=== PATIENT | female | born 1955 | race Caucasian/White ===

== ENCOUNTER 2018-11-18 11:32 | Inpatient (IN) | payer OTHER ==
[~2018-11-18 11:32] MED LIST: CEFAZOLIN 1 GM/50 ML (PMX) 50 ML IVPB; DESFLURANE 15 MIN; GLYCOPYRROLATE 0.4 MG INJ; NEOSTIGMINE 3 MG/3 ML SYRINGE; SOD CHLORIDE 0.9% 1,000 ML IV
[2018-11-18] MEDS ORDERED: MIDAZOLAM 1 MG/ML 2 ML INJ (15:16)
[2018-11-18] MEDS ORDERED: FENTAnyl 50 MCG/ML VIAL (15:27)
[2018-11-18] MEDS ORDERED: ONDANSETRON 4 MG INJ IV ×2 (15:30→17:00)
[2018-11-18] MEDS ORDERED: MEPERIDINE 25 MG INJ IV (15:30)
[2018-11-18] MEDS ORDERED: ALBUTEROL 0.083% (NEB) 2.5 MG/3 ML AMP HHN (15:30)
[2018-11-18] MEDS ORDERED: FENTAnyl 50 MCG/ML VIAL IV ×2 (15:30)
[2018-11-18] MEDS ORDERED: DIPHENHYDRAMINE 50 MG INJ IV (15:30)
[2018-11-18] MEDS ORDERED: HYDROmorphONE 1 MG/5 ML IV SYRINGE IV (15:30)
[2018-11-18] MEDS ORDERED: METOCLOPRAMIDE 10 MG INJ IV (15:30)
[2018-11-18] MEDS ORDERED: CEFAZOLIN 1 GM INJ (15:47)
[2018-11-18] MEDS ORDERED: ROCURONIUM 50 MG INJ (15:47)
[2018-11-18] MEDS ORDERED: PROPOFOL 20 ML (15:47)
[2018-11-18] MEDS ORDERED: SUCCINYLCHOLINE CHLORIDE 100 MG/5 ML SYG IV (15:47)
[2018-11-18] MEDS ORDERED: DEXAMETHASONE 4 MG/ML 1 ML INJ (15:47)
[2018-11-18] MEDS ORDERED: SUGAMMADEX SODIUM 200 MG/2 ML VIAL IV (15:47)
[2018-11-18] MEDS ORDERED: ONDANSETRON 4 MG INJ (15:47)
[2018-11-18] MEDS ORDERED: LIDOCAINE 100 MG SYRINGE (15:47)
[2018-11-18] MEDS: HYDROmorphONE 1 MG/5 ML IV SYRINGE IV ×2 (16:56→17:36)
[2018-11-18] MEDS ORDERED: morphine 2 MG INJ IV (17:00)
[2018-11-18] MEDS: D5W-0.45 NACL + KCL 20 MEQ 1,000 ML IV (18:53)
[2018-11-18] MEDS: ACETAMINOPHEN 1000MG/100ML IV 100 ML IVPB (20:04)
[2018-11-19] MEDS ORDERED: morphine SULFATE/PF (2 MG/2 ML) SYG IV (00:11)
[2018-11-19] MEDS: D5W-0.45 NACL + KCL 20 MEQ 1,000 ML IV ×2 (00:32→02:16)
[2018-11-19] MEDS: ACETAMINOPHEN 1000MG/100ML IV 100 ML IVPB ×2 (02:08→10:49)
[2018-11-19] MEDS: METHIMAZOLE 5 MG TAB PO (07:15)
[2018-11-19] MEDS: AMLODIPINE 10 MG TAB PO (08:53)
[2018-11-19] MEDS ORDERED: METHIMAZOLE 5 MG TAB PO (09:00)
== END 2018-11-19 15:45 | disposition home or self-care (01) | DRG 580 ==
LOC: REC 11:32 → MS1 18:10
PROC: 0HTU0ZZ Resection of Left Breast, Open Approach (ICD-10-PCS; principal; 2018-11-18 15:00)
PROC: 07B60ZX Excision of Left Axillary Lymphatic, Open Approach, Diagnostic (ICD-10-PCS; 2018-11-18 15:00)
DX: C50.912 Malignant neoplasm of unspecified site of left female breast (principal); C77.3 Secondary and unspecified malignant neoplasm of axilla and upper limb lymph nodes; E05.90 Thyrotoxicosis, unspecified without thyrotoxic crisis or storm; I10 Essential (primary) hypertension; Z90.710 Acquired absence of both cervix and uterus; Z80.3 Family history of malignant neoplasm of breast; Z80.49 Family history of malignant neoplasm of other genital organs
CPT/HCPCS: 88307